=== PATIENT | male | born 1970 | race Caucasian/White ===

== ENCOUNTER 2017-03-27 06:58 | Day surgery (SDC) | payer OTHER ==
[~2017-03-27] VITALS: Ht 180.3 cm; Wt 93.9 kg
[~2017-03-27 06:58] MED LIST: EQL IBUPROFEN200 MG PO
[2017-03-27 09:46] VITALS: BP 109/70
== END 2017-03-27 09:45 | disposition home or self-care (01) | DRG 572 ==
LOC: ORM 06:58
PROVIDERS: ATTEND Surgery
PROC: 0JB00ZZ Excision of Scalp Subcutaneous Tissue and Fascia, Open Approach (ICD-10-PCS; principal; 2017-03-27)
DX: L72.11 Pilar cyst (principal); F17.210 Nicotine dependence, cigarettes, uncomplicated

== ENCOUNTER 2017-12-31 13:38 | Emergency (ER) | payer OTHER ==
[~2017-12-31] VITALS: Ht 180.3 cm; Wt 93.2 kg
[2017-12-31] MEDS ORDERED: CLINDAMYCIN300 M1 PO (15:20)
[2017-12-31 15:30] VITALS: BP 139/74
== END 2017-12-31 15:30 | disposition home or self-care (01) | DRG 159 ==
LOC: ED 13:38
DX: K04.7 Periapical abscess without sinus (principal); K08.89 Other specified disorders of teeth and supporting structures